=== PATIENT | male | born 1955 | race Caucasian/White ===

== ENCOUNTER 2016-06-07 18:13 | Emergency (ER) | payer BC, OTHER ==
[~2016-06-07] VITALS: Ht 172.7 cm; Wt 103.5 kg
[~2016-06-07 18:13] MED LIST: ALBU1AER9; MULTIVIT PO; [UNRECOGNIZED DRUG - OTHER] PO; chondroitin
[2016-06-07 18:21] VITALS: TEMP 36.6; Ht 172.7 cm; Wt 103.5 kg
--- NOTE | 2016-06-07 18:32 | EMERGENCY ROOM VISIT NOTE ---
History Report prepared by Robbie: Bebeto Gonzalez Under the Supervision of: Dr. Sravan Phan D.O. First contact with patient: 18:22 Chief Complaint: CHEST PAIN Stated Complaint: CHEST PAIN Nursing Triage Summary: Pt presents with mid to left sided chest pain since Mon. Pt states, "I noticed today there is a bruise where the pain started. I had pill caught in my esophagus so I don't know it that is it." No known injury. History of Present Illness The patient is a 61 year old male who presents to the Emergency Room with complaints of waxing and waning chest pain that started 2 days ago. He says that the pain is in his mid and left-side. The patient has the pain currently. He notes that movement and exertion worsens the pain. He gets short of breath when the pain is bad. The patient noticed today that there is a little bruising on the left side of his chest. He denies any radiation of the pain, abdominal pain, or leg pain. He says that he has never had chest pain like this before. The patient went to [facility] yesterday, and had no tests done. He notes that he has a hiatal hernia. He has no heart attack history and has never had a heart cath before. The patient has sleep apnea, arthritis, and mild hypertension. He occasionally drinks alcohol, but does not use any tobacco products. Source of History: patient, spouse/significant other Onset: 2 days ago Position: chest (mid and left side) Timing: waxes/wanes Modifying Factors (Worsening): exertion, movement Associated Symptoms: + SOB, No abdominal pain Note: Associated symptoms: Bruising on left side of chest. Denies radiation of pain, leg pain. Review of Systems See HPI for pertinent positives & negatives. A total of 10 systems reviewed and were otherwise negative. Past Medical & Surgical Medical Problems: (1) Asthma (2) Bronchitis (3) HTN (hypertension) Surgical Problems: (1) History of hip surgery (2) Hx of shoulder surgery Family History No pertinent family history Social History Smoking Status: Former Smoker Alcohol Use: occasionally Marital Status: Housing Status: lives with family Occupation Status: employed Current/Historical Medications Scheduled Fish Oil (Montague-3), 1-2 CAP PO DAILY Joxucoxbzzq-Iacarykpkdc-Yxq C- (Glucosamine Chondroitin), 1-2 TABS PO DAILY Losartan Potassium (Cozaar), 25 MG PO DAILY Meloxicam (Mobic), 15 MG PO DAILY Modafinil (Provigil), 200 MG PO DAILY Multivitamin (Multivitamin), 1 TAB PO DAILY Scheduled PRN Albuterol (Ventolin Hfa), 2 PUFFS INH Q4H PRN for SOB/Wheezing Diclofenac Sodium (Topical) (Pennsaid), 2 SPRAYS TOP BID PRN for Joint Pain Tramadol Hcl (Tramadol Hcl Er), 100 MG PO UD PRN for Pain Allergies Coded Allergies: No Known Allergies (Unverified , 07/15/10) Physical Exam Vital Signs Date Time Temp Pulse Resp B/P Pulse Ox O2 Delivery O2 Flow Rate FiO2 06/07/16 21:00 70 18 153/85 93 06/07/16 20:17 68 20 135/72 95 Room Air 06/07/16 19:37 70 18 143/76 94 Room Air 06/07/16 18:40 97 Room Air 06/07/16 18:37 73 06/07/16 18:21 36.6 76 18 154/90 96 Room Air Physical Exam GENERAL: Patient is awake, alert, and in no acute distress. Patient is resting comfortably and showing no signs of anxiety EYES: The conjunctivae are clear. The pupils are round and reactive. EARS, NOSE, MOUTH AND THROAT: The nose is without any evidence of any deformity. Mucous membranes are moist tongue is midline NECK: The neck is nontender and supple. RESPIRATORY: Normal respiratory effort is noted there is no evidence of wheezing rhonchi or rales CARDIOVASCULAR: Regular rate and rhythm noted there no murmurs rubs or gallops normal S1 normal S2 GASTROINTESTINAL: The abdomen is soft. Bowel sounds are present in all quadrants. Abdomen is nontender MUSCULOSKELETAL/EXTREMITIES: There is no evidence of gross deformity full range of motion is noted in the hips and shoulders. There was ecchymosis and palpable tenderness over left chest wall. SKIN: There is no obvious evidence of any rash. There are no petechiae, pallor or cyanosis noted. NEUROLOGIC: Patient is awake alert and oriented x3. Medical Decision & Procedures ER Provider Diagnostic Interpretation: Radiology results as stated below per my review and radiologist interpretation: CHEST ONE VIEW PORTABLE CLINICAL HISTORY: CHEST PAIN dyspnea COMPARISON STUDY: 12/28/2009 FINDINGS: The bones soft tissues and hemidiaphragms are normal. The cardiomediastinal silhouette is normal. The lungs are clear. The pulmonary vasculature is normal. IMPRESSION: Negative chest. Electronically signed by: Davin Gar M.D. 06/07/2016 7:07 PM Dictated Date/Time: 06/07/2016 7:06 PM CHEST CTA for PULMONARY ARTERIES CT DOSE: 517.32 mGy.cm HISTORY: Chest pain dyspnea TECHNIQUE: Multiaxial CT images of the chest were performed following the intravenous administration of contrast to evaluate the pulmonary arteries. Maximal intensity projection images were also obtained. COMPARISON STUDY: None. FINDINGS: There is a normal caliber thoracic aorta with no evidence for dissection. There is no evidence for pulmonary embolus. No pleural effusions. No pneumothorax. The liver and spleen are unremarkable. No mediastinal or hilar lymphadenopathy. The central airways are patent. The lungs are clear. Minimal scattered atelectatic change. IMPRESSION: No evidence for pulmonary embolus. Minimal scattered atelectatic change. Electronically signed by: Davin Gar M.D. 06/07/2016 8:08 PM Dictated Date/Time: 06/07/2016 8:06 PM Laboratory Results 06/07/16 18:40 Red Blood Count 4.88, Mean Corpuscular Volume 87.7, Mean Corpuscular Hemoglobin 30.3, Mean Corpuscular Hemoglobin Concent 34.6, Mean Platelet Volume 9.8, Neutrophils (%) (Auto) 57.8, Lymphocytes (%) (Auto) 29.5, Monocytes (%) (Auto) 8.0, Eosinophils (%) (Auto) 4.3, Basophils (%) (Auto) 0.3, Neutrophils # (Auto) 3.91, Lymphocytes # (Auto) 2.00, Monocytes # (Auto) 0.54, Eosinophils # (Auto) 0.29, Basophils # (Auto) 0.02 06/07/16 18:40 Test 06/07/16 18:40 White Blood Count 6.77 K/uL (4.8-10.8) Red Blood Count 4.88 M/uL (4.7-6.1) Hemoglobin 14.8 g/dL (14.0-18.0) Hematocrit 42.8 % (42-52) Mean Corpuscular Volume 87.7 fL (80-100) Mean Corpuscular Hemoglobin 30.3 pg (25-34) Mean Corpuscular Hemoglobin Concent 34.6 g/dl (32-36) Platelet Count 168 K/uL (130-400) Mean Platelet Volume 9.8 fL (7.4-10.4) Neutrophils (%) (Auto) 57.8 % Lymphocytes (%) (Auto) 29.5 % Monocytes (%) (Auto) 8.0 % Eosinophils (%) (Auto) 4.3 % Basophils (%) (Auto) 0.3 % Neutrophils # (Auto) 3.91 K/uL (1.4-6.5) Lymphocytes # (Auto) 2.00 K/uL (1.2-3.4) Monocytes # (Auto) 0.54 K/uL (0.11-0.59) Eosinophils # (Auto) 0.29 K/uL (0-0.5) Basophils # (Auto) 0.02 K/uL (0-0.2) RDW Standard Deviation 39.7 fL (36.4-46.3) RDW Coefficient of Variation 12.4 % (11.5-14.5) Immature Granulocyte % (Auto) 0.1 % Immature Granulocyte # (Auto) 0.01 K/uL (0.00-0.02) Prothrombin Time 10.8 SECONDS (9.0-12.0) Prothromb Time International Ratio 1.0 (0.9-1.1) Activated Partial Thromboplast Time 28.2 SECONDS (21.0-31.0) Partial Thromboplastin Ratio 1.1 D-Dimer 700 ug/L FEU (0-500) Anion Gap 9.0 mmol/L (3-11) Est Creatinine Clear Calc Drug Dose 92.5 ml/min Estimated GFR () 95.5 Estimated GFR (Non- 82.4 BUN/Creatinine Ratio 21.6 (10-20) Calcium Level 9.1 mg/dl (8.5-10.1) Total Bilirubin 0.7 mg/dl (0.2-1) Direct Bilirubin 0.2 mg/dl (0-0.2) Aspartate Amino Transf (AST/SGOT) 40 U/L (15-37) Alanine Aminotransferase (ALT/SGPT) 49 U/L (12-78) Alkaline Phosphatase 108 U/L (45-117) Total Creatine Kinase 375 U/L (39-308) Creatine Kinase MB 4.1 ng/ml (0.5-3.6) Creatine Kinase MB Ratio 1.1 (0-3.0) Troponin I < 0.015 ng/ml (0-0.045) Total Protein 7.2 gm/dl (6.4-8.2) Albumin 4.1 gm/dl (3.4-5.0) Lipase 107 U/L (73-393) Laboratory results per my review. ECG Indication: chest pain Rate (beats per minute): 73 Rhythm: normal sinus Findings: no ectopy, other (no acute ST segment abnormalities, incomplete RBBB pattern noted) Change: no significant change (from Jul 15 2010) ED Course 1822: The patient was evaluated in room B11B. A complete history and physical examination were performed. 1941: I reevaluated and updated the patient. 2036: Upon reevaluation, the patient is resting comfortably. I discussed the results and treatment plan with him. He verbalized agreement of the treatment plan. He was discharged home. Medical Decision Prior records/ancillary studies reviewed. Triage Nursing notes reviewed. Additional history obtained from family. Differential diagnosis: Etiologies such as cardiac ischemia, aortic dissection, pulmonary embolism, pneumonia, pneumothorax, musculoskeletal, infections, pericarditis, myocarditis , esophageal rupture, gastrointestinal, as well as others were entertained. The patient is a 61-year-old male who presented to emergency department for ongoing left-sided chest pain. The patient noticed left-sided chest pain which is been ongoing for greater than 6 hours. The patient also had ecchymosis and tenderness over his left anterior chest wall. The patient's EKG did not show any acute changes from previous. His d-dimer is elevated to a CT the chest was ordered. I discussed patient's laboratory and radiographic studies with him. He was reevaluated multiple times. He was encouraged to rest and avoid any strenuous activity. I also discussed the limitations of the emergency department workup for chest pain with him. He was also encouraged to follow-up with his family doctor for further evaluation and for possible further studies such as echocardiogram. He was also encouraged to return to the emergency department immediately if symptoms change worsen or the need arises. Impression Primary Impression: Left sided chest pain Additional Impression: Musculoskeletal chest pain Scribe Attestation The scribe's documentation has been prepared under my direction and personally reviewed by me in its entirety. I confirm that the note above accurately reflects all work, treatment, procedures, and medical decision making performed by me. Departure Information Dispostion Home / Self-Care Referrals Venkata Joiner D.O. (PCP) Forms HOME CARE DOCUMENTATION FORM, IMPORTANT VISIT INFORMATION Patient Instructions ED Chest Pain Atypical Unkn Cause, My [facility] Additional Instructions Call your family in the morning to schedule a follow-up appointment. Rest and avoid any strenuous activity. Discussed the possibility with your family the may require further studies such as a stress test to further evaluate the cause your pain. Return to the emergency department immediately if symptoms change worsen or the need arises. Continue using Motrin and Tylenol as directed for pain. Problem Qualifiers
[2016-06-07 18:40] VITALS: O2SAT 97
[2016-06-07 18:50] LABS: BASO % 0.3 %; BASO ABS # 0.02 K/uL (0-0.2); COMPLETE YES; EOS % 4.3 %; HEMATOCRIT 42.8 % (42-52); IG% 0.1 %; LYMPH % 29.5 %; MEAN CELL VOLUME 87.7 fL (80-100); MEAN CORPUSCULAR HEMOGLOBIN 30.3 pg (25-34); MEAN CORPUSCULAR HGB CONC 34.6 g/dl (32-36); MEAN PLATELET VOLUME 9.8 fL (7.4-10.4); NEUT % 57.8 %; PLATELET COUNT 168 K/uL (130-400); RED BLOOD COUNT 4.88 M/uL (4.7-6.1); WHITE BLOOD COUNT 6.77 K/uL (4.8-10.8)
[2016-06-07 19:00] LABS: PARTIAL THROMBOPLASTIN RATIO 1.1; PROTHROMBIN TIME (PATIENT) 10.8 SECONDS (9.0-12.0)
[2016-06-07 19:06] LABS: ALT/SGPT 49 U/L (12-78); AST/SGOT 40 U/L (15-37); BLOOD UREA NITROGEN 21 mg/dl (7-18); BUN/CREATININE RATIO 21.6 (10-20); CALCIUM 9.1 mg/dl (8.5-10.1); CARBON DIOXIDE 27 mmol/L (21-32); CHLORIDE 106 mmol/L (98-107); CREATININE 0.99 mg/dl (0.60-1.40); GLUCOSE 78 mg/dl (70-99); POTASSIUM 3.8 mmol/L (3.5-5.1); SODIUM 142 mmol/L (136-145)
--- NOTE | 2016-06-07 19:09 | DIAGNOSTIC IMAGING REPORT ---
CHEST ONE VIEW PORTABLE CLINICAL HISTORY: CHEST PAIN dyspnea COMPARISON STUDY: 12/28/2009 FINDINGS: The bones soft tissues and hemidiaphragms are normal. The cardiomediastinal silhouette is normal. The lungs are clear. The pulmonary vasculature is normal. IMPRESSION: Negative chest. Electronically signed by: Davin Gar M.D. 06/07/2016 7:07 PM Dictated Date/Time: 06/07/2016 7:06 PM
[2016-06-07 19:12] LABS: ALKALINE PHOSPHATASE 108 U/L (45-117); CKMB/CK RATIO 1.1 (0-3.0)
[2016-06-07] MEDS ORDERED: MODA1TAB PO (19:21)
[2016-06-07] MEDS ORDERED: GLUCTAB7 PO (19:21)
[2016-06-07] MEDS ORDERED: DICL1SOL6 TOP (19:21)
[2016-06-07] MEDS ORDERED: MULT-506 PO (19:21)
[2016-06-07] MEDS ORDERED: LOSA25TA18 PO (19:21)
[2016-06-07] MEDS ORDERED: TRAM1TAB96 PO (19:21)
[2016-06-07] MEDS ORDERED: MELO15TA4 PO (19:21)
[2016-06-07] MEDS ORDERED: OMEG10007 PO (19:21)
[2016-06-07] MEDS ORDERED: PRVHFAIN INH (19:21)
[2016-06-07] MEDS ORDERED: OPTIRAY 320 IV PRN (20:00)
--- NOTE | 2016-06-07 20:10 | DIAGNOSTIC IMAGING REPORT ---
CHEST CTA for PULMONARY ARTERIES CT DOSE: 517.32 mGy.cm HISTORY: Chest pain dyspnea TECHNIQUE: Multiaxial CT images of the chest were performed following the intravenous administration of contrast to evaluate the pulmonary arteries. Maximal intensity projection images were also obtained. COMPARISON STUDY: None. FINDINGS: There is a normal caliber thoracic aorta with no evidence for dissection. There is no evidence for pulmonary embolus. No pleural effusions. No pneumothorax. The liver and spleen are unremarkable. No mediastinal or hilar lymphadenopathy. The central airways are patent. The lungs are clear. Minimal scattered atelectatic change. IMPRESSION: No evidence for pulmonary embolus. Minimal scattered atelectatic change. Electronically signed by: Davin Gar M.D. 06/07/2016 8:08 PM Dictated Date/Time: 06/07/2016 8:06 PM
[2016-06-07 21:00] VITALS: BP 153/85; PULSE 70; O2SAT 93
== END 2016-06-07 21:01 | disposition home or self-care (01) ==
LOC: C.EDB 18:14
DX: R07.89 Other chest pain (principal); J45.909 Unspecified asthma, uncomplicated; I10 Essential (primary) hypertension; Z98.890 Other specified postprocedural states; Z87.891 Personal history of nicotine dependence; Z79.899 Other long term (current) drug therapy

== ENCOUNTER 2022-03-09 18:38 | Inpatient (IN) ==
[2022-03-09] MEDS ORDERED: ACETAMINOPHEN 500 MG TAB ONE (20:45)
[2022-03-09 21:22] LABS: Troponin I High Sensitivity 19.5 pg/ml (0-20)
[2022-03-09 21:28] LABS: Albumin Globulin Ratio 1.5 (0.9-2); Albumin Level 4.1 gm/dl (3.4-5.0); BUN Creatinine Ratio 23.3 (10-20); Bilirubin,Total 0.6 mg/dl (0.2-1.0); Calcium 9.3 mg/dl (8.5-10.1); Creatinine Clr Calc Pharmacy 76.9 ml/min; Est GFR (African American) 73.1 ml/min; Est GFR (Non-African American) 63.1 ml/min; Globulin 2.7 gm/dl (2.5-4.0); Potassium 4.2 mmol/L (3.5-5.1); Total Protein 6.8 gm/dl (6.0-8.3)
[2022-03-09] MEDS ORDERED: ACETAMINOPHEN 1,000 MG/100 ML VIAL IV STA (21:29)
[2022-03-09] MEDS ORDERED: SODIUM CHLORIDE 0.9% 1000ML 1,000 ML IV ONE (21:30)
[2022-03-09 21:35] LABS: Influenza A virus by PCR Negative (Neg); Influenza B virus by PCR Negative (Neg); RSV by PCR Negative (Neg); SARS CoV2 RNA(COVID-19) Ceph NEGATIVE (Negative)
[2022-03-09] MEDS ORDERED: IBUPROFEN 800 MG TAB PO STA (21:52)
[2022-03-09] MEDS ORDERED: ALBUT/IPRATROP 3MG/0.5MG NEB 3 ML VIAL NEB STA (21:52)
[2022-03-09] MEDS ORDERED: methylPREDNISolone 125 MG/2 ML VIAL IV STA (21:52)
[2022-03-09 22:25] LABS: Appearance Urine Clear (Clear); Bilirubin Urine Negative (Negative); Blood Urine Negative (Negative); Color Urine Yellow; Glucose Urine UA Negative (Negative); Ketones Urine Negative (Negative); Leukocyte Esterase Urine Negative (Negative); Nitrite Urine Negative (Negative); Protein Urine Negative (Negative); Specific Gravity Urine 1.021 (1.000-1.030); Urobilinogen Urine Negative (Negative)
[2022-03-09 22:38] LABS: Basophils # (auto) 0.03 K/uL (0-0.2); Basophils % (auto) 0.2 %; Eosinophils # (auto) 0.01 K/uL (0-0.50); Eosinophils % (auto) 0.1 %; Hematocrit (blood only) 44.2 % (40.1-51.0); Hemoglobin 15.4 g/dl (14.0-18.0); Immature Granulocytes # (auto) 0.16 K/uL (0.00-0.02); Immature Granulocytes % (auto) 0.8 %; Lymphocytes # (auto) 0.45 K/uL (1.2-3.4); Lymphocytes % (auto) 2.4 %; Mean Corpuscular Hemoglobin 30.6 pg (25.0-34.0); Mean Corpuscular Hgb Conc 34.8 g/dL (32.0-36.0); Mean Corpuscular Volume 87.9 fL (80.0-100.0); Mean Platelet Volume 9.5 fL (9.4-12.4); Monocytes # (auto) 1.44 K/uL (0.24-0.82); Monocytes % (auto) 7.5 %; Neutrophils # (auto) 17.03 K/uL (1.4-6.5); Platelet Count 185 K/uL (130-400); RDW Standard Deviation 38.6 fL (36.4-46.3); Red Blood Count 5.03 M/uL (4.63-6.08); White Blood Count 19.12 K/ul (4.8-10.8)
[2022-03-09] MEDS ORDERED: PIPERACILLIN/TAZOBACTAM 4.5 GM/120 ML BAG IV ONE (23:30)
--- NOTE | 2022-03-09 23:55 | Emergency Department Note ---
ED Visit Note I was consulted by the Advanced Practice Provider. I saw the patient personally and performed a substantive portion of the visit. This includes aspects of the HPI, MDM, diagnostic interpretations, and disposition/plan. Patient presents with flulike symptoms, fever and cough. He does have a high white count, he presents tachycardic as well as febrile. Antibiotics were given. Hospitalization is warranted. .
[2022-03-10] MEDS ORDERED: OPTIRAY 320 500ml IV ONE (00:09)
--- NOTE | 2022-03-10 00:15 | Emergency Department Note ---
History of Present Illness General Chief complaint: Hypertension Stated complaint: HIGH BP, FEVER, NAUSEA, DIZZY Time Seen by Provider: 03/09/22 21:25 History of Present Illness Maximum Pain Intensity: 4 This 66-year-old gentleman with hypertension and asthma presents to the ER complaining of fevers, cough, shortness of breath and generalized illness for the past few days steadily getting worse. Patient denies abdominal pain, neck stiffness, vomiting, diarrhea. His main complaint is the coughing and the breathing. Home Medications Medication Instructions Recorded Confirmed Type acetaminophen 500 mg tablet 1,000 mg PO AMHS PRN Pain 03/09/22 03/09/22 History albuterol sulfate 90 mcg/actuation 2 puff inhalation QID PRN 03/09/22 03/09/22 History aerosol inhaler Shortness Of Breath Or Wheezing amlodipine 2.5 mg tablet 2.5 mg PO DAILY 03/09/22 03/09/22 History cholecalciferol (vitamin D3) 25 12.5 mcg PO DAILY 03/09/22 03/09/22 History mcg (1,000 unit) tablet citalopram 20 mg tablet 20 mg PO DAILY 03/09/22 03/09/22 History glucosamine sulf dipot 2 cap PO QAM 03/09/22 03/09/22 History chlr,msm,chond 550 mg-C 30 mg-asif 1 mg capsule (Glucosamine Chondroitin) losartan 100 mg tablet 100 mg PO QAM 03/09/22 03/09/22 History meloxicam 15 mg tablet 15 mg PO DAILY 03/09/22 03/09/22 History multivitamin 1 tab PO DAILY 03/09/22 03/09/22 History vitamin E 200 unit tablet 0 unit PO DAILY 03/09/22 03/09/22 History Allergies Allergy/AdvReac Type Severity Reaction Status Date / Time No Known Allergies Unverified 03/09/22 23:18 Past Med/Surg History Social History Smoking Status: Never smoker Hx Alcohol Use: No Hx Substance Use: No Preferred Language: Romansh Communication Ability: Effective [facility] Director Required: No Beliefs That Will Affect Care: Christian Christian Beliefs: samaritan Current Living Situation: Spouse and Family Other Information That Helps Us Care for You: No Feels Safe at Home: Yes Safety Concerns: Feels Safe At This Time Assistive Devices: BiPap and Glasses Review of Systems A total of 10 systems reviewed and were otherwise negative Physical Exam Vital Signs Vital Signs - 24 hr 03/09/22 19:00 03/09/22 22:00 03/10/22 00:00 Temperature 38.6 C H Temperature Source Temporal Artery Scan Pulse Rate 119 H Pulse Rate [Right Radial] 103 H 88 Respiratory Rate 20 20 18 Respiratory Effort / Characteristics Non-Labored Spontaneous Non-Labored Spontaneous Non-Labored Spontaneous Respiratory Depth Normal Normal Normal Respiratory Pattern Regular Blood Pressure 164/88 H Blood Pressure [Right Arm] 132/66 Blood Pressure Mean 113 Blood Pressure Mean [Right Arm] 88 Blood Pressure Position [Right Arm] Lying Pulse Oximetry 97 92 98 Oxygen Delivery Method Room Air Room Air Room Air Sepsis Recent Fever Within 48 Hours No Sepsis New/Unexplained Change in Mental Status N/A Sepsis Action Taken by Nursing No Action Required 03/10/22 02:00 Temperature Temperature Source Pulse Rate Pulse Rate [Right Radial] 80 Respiratory Rate 16 Respiratory Effort / Characteristics Non-Labored Spontaneous Respiratory Depth Normal Respiratory Pattern Blood Pressure Blood Pressure [Right Arm] 121/73 Blood Pressure Mean Blood Pressure Mean [Right Arm] 89 Blood Pressure Position [Right Arm] Pulse Oximetry 99 Oxygen Delivery Method Room Air Sepsis Recent Fever Within 48 Hours Sepsis New/Unexplained Change in Mental Status Sepsis Action Taken by Nursing PHYSICAL EXAM: Vital Signs: Reviewed Nurse's notes. Oxygen saturation was 92% on room air. GENERAL: Pleasant gentleman mildly ill-appearing, Alert, oriented and coherent. The patient is able to speak in complete sentences. NECK: Supple, non-tender. CHEST: Symmetrical expansion. no retractions no accessory muscle use. HEART: Regular rate and normal heart sounds, LUNGS: Breath sounds equal but significantly diminished in intensity on both sides. Bilateral wheezes heard but no rales or pleuritic rub. SKIN: The skin was without rashes, erythema, edema, or bruising. There is no tenting of the skin. Capillary reflex less than 2 seconds. HEAD: Normocephalic atraumatic. EARS: External auditory canals clear, tympanic membranes pearly coronado without erythema or effusion bilaterally. EYES: Pupils equal round and reactive to light and accommodation. Conjunctivae without injection, sclerae without icterus. Extraocular movements intact. NOSE: Patent, turbinates without inflammation or discharge. MOUTH: Mucous membranes moist. Pharynx without erythema or exudate. Uvula midline. Airway patent. Tongue does not deviate. ABDOMEN: Positive bowel sounds x 4. Normal tympanic percussion. Soft, nontender, without masses or organomegaly. Serrato sign negative. No guarding or rebound tenderness. MUSCULOSKELETAL: No muscle atrophy, erythema, noted. NEURO: Patient was alert and oriented to person place and time. Normal sensation to light and sharp touch. No focal neurological deficits. Course Administered Medications Discontinued Medications Acetaminophen (Acetaminophen 500 Mg Tab) Confirm Administered Dose 1,000 mg .ROUTE .STK-MED ONE Stop: 03/09/22 20:46 Last Admin: 03/09/22 20:46 Dose: 1,000 mg Documented By: LUIS M Albuterol (Albut/Ipratrop 3mg/0.5mg Neb 3 Ml Vial) 3 ml NEB NOW STA; Protocol Stop: 03/09/22 21:53 Last Admin: 03/09/22 22:00 Dose: 3 ml Documented By: LISETH Acetaminophen (Ofirmev) 1,000 mg in 100 mls @ 400 mls/hr IV NOW STA Stop: 03/09/22 21:43 Last Admin: 03/09/22 22:00 Dose: Not Given Documented By: LISETH Sodium Chloride (Nss 1000ml) 1,000 mls @ 999 mls/hr IV .Q1H1M ONE Stop: 03/09/22 22:30 Last Infusion: 03/09/22 23:16 Dose: 0 mls/hr Documented By: Admin: 03/09/22 22:01 Dose: 999 mls/hr Documented By: LISETH Piperacillin Sod/Tazobactam Sod (Zosyn) 4.5 gm in 120 mls @ 240 mls/hr IV NOW ONE Stop: 03/09/22 23:59 Last Infusion: 03/10/22 00:13 Dose: 0 mls/hr Documented By: Admin: 03/09/22 23:34 Dose: 240 mls/hr Documented By: LONG Ibuprofen (Ibuprofen 800 Mg Tab) 800 mg PO NOW STA Stop: 03/09/22 21:53 Last Admin: 03/09/22 22:01 Dose: 800 mg Documented By: LISETH Ioversol (Optiray 320 500ml) 125 ml IV ONCE ONE Stop: 03/10/22 00:10 Last Admin: 03/10/22 00:10 Dose: 109 ml Documented By: LM Methylprednisolone (Methylprednisolone 125 Mg/2 Ml Vial) 125 mg IV NOW STA Stop: 03/09/22 21:53 Last Admin: 03/09/22 22:00 Dose: 125 mg Documented By: LISETH Medical Decision Making Medical Records Attestation: I reviewed the patient's medical records. Home Medications Current Medication List: was personally reviewed by me Laboratory Data Attestation: I reviewed the patient's lab results. 03/09/22 22:14 03/09/22 20:42 Lab Results 03/09/22 03/09/22 03/09/22 Range/Units 20:42 20:42 20:42 WBC Cancelled RBC Cancelled Hgb Cancelled Hct Cancelled MCV Cancelled MCH Cancelled MCHC Cancelled RDW Std Deviation Cancelled RDW Coeff of Major Cancelled Plt Count Cancelled MPV Cancelled Immature Gran % (Auto) Cancelled Neut % (Auto) Cancelled Lymph % (Auto) Cancelled [place] % (Auto) Cancelled Eos % (Auto) Cancelled Baso % (Auto) Cancelled Neut # (Auto) Cancelled Lymph # (Auto) Cancelled [place] # (Auto) Cancelled Eos # (Auto) Cancelled Baso # (Auto) Cancelled Immature Gran # (Auto) Cancelled Absolute Nucleated RBC Cancelled Nucleated RBC % (auto) Cancelled Neutrophils % (Manual) Cancelled Band Neutrophils % Cancelled Lymphocytes % (Manual) Cancelled Prolymphocyte % Cancelled Reactive Lymphs % (Man) Cancelled Monocytes % (Manual) Cancelled Eosinophils % (Manual) Cancelled Basophils % (Manual) Cancelled Metamyelocytes % (Man) Cancelled Myelocytes % (Man) Cancelled Promyelocytes % (Man) Cancelled Blast Cells % (Manual) Cancelled Plasma Cell % (Manual) Cancelled Other Cells % Cancelled Nucleated RBC % Cancelled Neutrophils # (Manual) Cancelled Band Neutrophils # Cancelled Total Absolute Neuts Cancelled Lymphocytes # (Manual) Cancelled Prolymphocyte # Cancelled Reactive Lymphs # Cancelled Total Abs Lymphocytes Cancelled Monocytes # (Manual) Cancelled Eosinophils # (Manual) Cancelled Basophils # (Manual) Cancelled Metamyelocytes # (Man) Cancelled Myelocytes # (Manual) Cancelled Promyelocytes # (Man) Cancelled Blast Cells # (Man) Cancelled Plasma Cell # (Manual) Cancelled Other Cells # Cancelled Nucleated RBCs # (Man) Cancelled Hypersegmented Neuts Cancelled Hyposegmented Neuts Cancelled Hypogranular Neuts Cancelled Large Granular Lymphs Cancelled # Lrg Granular Lymphs Cancelled Hairy Cells Cancelled Smudge Cells Cancelled Toxic Granulation Cancelled Toxic Vacuolation Cancelled Dohle Bodies Cancelled Rony Rods Cancelled Platelet Estimate Cancelled Hypogranular Platelets Cancelled Clumped Platelets Cancelled Giant Platelets Cancelled Platelet Satelliting Cancelled RBC Morphology Cancelled Polychromasia Cancelled Hypochromasia Cancelled Poikilocytosis Cancelled Basophilic Stippling Cancelled Anisocytosis Cancelled Microcytosis Cancelled Macrocytosis Cancelled Spherocytes Cancelled Pappenheimer Bodies Cancelled Sickle Cells Cancelled Target Cells Cancelled Tear Drop Cells Cancelled Ovalocytes Cancelled Stomatocytes Cancelled [place] Bodies Cancelled Echinocytes Cancelled Acanthocytes (Spur) Cancelled Rouleaux Cancelled RBC Agglutinates Cancelled Schistocytes Cancelled Sezary Cell Cancelled Sodium 136 (136-145) mmol/L Potassium 4.2 (3.5-5.1) mmol/L Chloride 105 (98-107) mmol/L Carbon Dioxide 21 (21-32) mmol/L Anion Gap 10 (3-11) BUN 28 H (6-23) mg/dl Creatinine 1.20 (0.6-1.4) mg/dl Est Cr Clr Drug Dosing 76.9 ml/min Est GFR ( Amer) 73.1 ml/min Est GFR (Non-Af Amer) 63.1 ml/min BUN/Creatinine Ratio 23.3 H (10-20) Glucose 108 H (70-99(Fasting)) mg/dl Lactate (0.4-2.0) mmol/L Calcium 9.3 (8.5-10.1) mg/dl Total Bilirubin 0.6 (0.2-1.0) mg/dl AST 29 (13-39) U/L ALT 40 (7-52) U/L Alkaline Phosphatase 61 (34-104) U/L Troponin I High Sens 19.5 (0-20) pg/ml Total Protein 6.8 (6.0-8.3) gm/dl Albumin 4.1 (3.4-5.0) gm/dl Globulin 2.7 (2.5-4.0) gm/dl Albumin/Globulin Ratio 1.5 (0.9-2) Procalcitonin (0-0.5) ng/ml Urine Color Urine Appearance (Clear) Urine pH (4.5-7.5) Ur Specific Moody (1.000-1.030) Urine Protein (Negative) Urine Glucose (UA) (Negative) Urine Ketones (Negative) Urine Blood (Negative) Urine Nitrite (Negative) Urine Bilirubin (Negative) Urine Urobilinogen (Negative) Ur Leukocyte Esterase (Negative) SARS-CoV-2 (PCR) NEGATIVE (Negative) Influenza Type A (PCR) Negative (Neg) Influenza Type B (PCR) Negative (Neg) RSV (RT-PCR) Negative (Neg) Blood Parasites ID Cancelled 03/09/22 03/09/22 03/09/22 Range/Units 20:42 22:10 22:14 WBC 19.12 H RBC 5.03 Hgb 15.4 Hct 44.2 MCV 87.9 MCH 30.6 MCHC 34.8 RDW Std Deviation 38.6 RDW Coeff of Major 12.0 Plt Count 185 MPV 9.5 Immature Gran % (Auto) 0.8 Neut % (Auto) 89.0 Lymph % (Auto) 2.4 [place] % (Auto) 7.5 Eos % (Auto) 0.1 Baso % (Auto) 0.2 Neut # (Auto) 17.03 H Lymph # (Auto) 0.45 L [place] # (Auto) 1.44 H Eos # (Auto) 0.01 Baso # (Auto) 0.03 Immature Gran # (Auto) 0.16 H Absolute Nucleated RBC Nucleated RBC % (auto) Neutrophils % (Manual) Band Neutrophils % Lymphocytes % (Manual) Prolymphocyte % Reactive Lymphs % (Man) Monocytes % (Manual) Eosinophils % (Manual) Basophils % (Manual) Metamyelocytes % (Man) Myelocytes % (Man) Promyelocytes % (Man) Blast Cells % (Manual) Plasma Cell % (Manual) Other Cells % Nucleated RBC % Neutrophils # (Manual) Band Neutrophils # Total Absolute Neuts Lymphocytes # (Manual) Prolymphocyte # Reactive Lymphs # Total Abs Lymphocytes Monocytes # (Manual) Eosinophils # (Manual) Basophils # (Manual) Metamyelocytes # (Man) Myelocytes # (Manual) Promyelocytes # (Man) Blast Cells # (Man) Plasma Cell # (Manual) Other Cells # Nucleated RBCs # (Man) Hypersegmented Neuts Hyposegmented Neuts Hypogranular Neuts Large Granular Lymphs # Lrg Granular Lymphs Hairy Cells Smudge Cells Toxic Granulation Toxic Vacuolation Dohle Bodies Rony Rods Platelet Estimate Hypogranular Platelets Clumped Platelets Giant Platelets Platelet Satelliting RBC Morphology Polychromasia Hypochromasia Poikilocytosis Basophilic Stippling Anisocytosis Microcytosis Macrocytosis Spherocytes Pappenheimer Bodies Sickle Cells Target Cells Tear Drop Cells Ovalocytes Stomatocytes [place] Bodies Echinocytes Acanthocytes (Spur) Rouleaux RBC Agglutinates Schistocytes Sezary Cell Sodium (136-145) mmol/L Potassium (3.5-5.1) mmol/L Chloride (98-107) mmol/L Carbon Dioxide (21-32) mmol/L Anion Gap (3-11) BUN (6-23) mg/dl Creatinine (0.6-1.4) mg/dl Est Cr Clr Drug Dosing ml/min Est GFR ( Amer) ml/min Est GFR (Non-Af Amer) ml/min BUN/Creatinine Ratio (10-20) Glucose (70-99(Fasting)) mg/dl Lactate (0.4-2.0) mmol/L Calcium (8.5-10.1) mg/dl Total Bilirubin (0.2-1.0) mg/dl AST (13-39) U/L ALT (7-52) U/L Alkaline Phosphatase (34-104) U/L Troponin I High Sens (0-20) pg/ml Total Protein (6.0-8.3) gm/dl Albumin (3.4-5.0) gm/dl Globulin (2.5-4.0) gm/dl Albumin/Globulin Ratio (0.9-2) Procalcitonin 0.21 (0-0.5) ng/ml Urine Color Yellow Urine Appearance Clear (Clear) Urine pH 6.0 (4.5-7.5) Ur Specific Moody 1.021 (1.000-1.030) Urine Protein Negative (Negative) Urine Glucose (UA) Negative (Negative) Urine Ketones Negative (Negative) Urine Blood Negative (Negative) Urine Nitrite Negative (Negative) Urine Bilirubin Negative (Negative) Urine Urobilinogen Negative (Negative) Ur Leukocyte Esterase Negative (Negative) SARS-CoV-2 (PCR) (Negative) Influenza Type A (PCR) (Neg) Influenza Type B (PCR) (Neg) RSV (RT-PCR) (Neg) Blood Parasites ID 03/09/22 Range/Units 22:14 WBC RBC Hgb Hct MCV MCH MCHC RDW Std Deviation RDW Coeff of Major Plt Count MPV Immature Gran % (Auto) Neut % (Auto) Lymph % (Auto) [place] % (Auto) Eos % (Auto) Baso % (Auto) Neut # (Auto) Lymph # (Auto) [place] # (Auto) Eos # (Auto) Baso # (Auto) Immature Gran # (Auto) Absolute Nucleated RBC Nucleated RBC % (auto) Neutrophils % (Manual) Band Neutrophils % Lymphocytes % (Manual) Prolymphocyte % Reactive Lymphs % (Man) Monocytes % (Manual) Eosinophils % (Manual) Basophils % (Manual) Metamyelocytes % (Man) Myelocytes % (Man) Promyelocytes % (Man) Blast Cells % (Manual) Plasma Cell % (Manual) Other Cells % Nucleated RBC % Neutrophils # (Manual) Band Neutrophils # Total Absolute Neuts Lymphocytes # (Manual) Prolymphocyte # Reactive Lymphs # Total Abs Lymphocytes Monocytes # (Manual) Eosinophils # (Manual) Basophils # (Manual) Metamyelocytes # (Man) Myelocytes # (Manual) Promyelocytes # (Man) Blast Cells # (Man) Plasma Cell # (Manual) Other Cells # Nucleated RBCs # (Man) Hypersegmented Neuts Hyposegmented Neuts Hypogranular Neuts Large Granular Lymphs # Lrg Granular Lymphs Hairy Cells Smudge Cells Toxic Granulation Toxic Vacuolation Dohle Bodies Rony Rods Platelet Estimate Hypogranular Platelets Clumped Platelets Giant Platelets Platelet Satelliting RBC Morphology Polychromasia Hypochromasia Poikilocytosis Basophilic Stippling Anisocytosis Microcytosis Macrocytosis Spherocytes Pappenheimer Bodies Sickle Cells Target Cells Tear Drop Cells Ovalocytes Stomatocytes [place] Bodies Echinocytes Acanthocytes (Spur) Rouleaux RBC Agglutinates Schistocytes Sezary Cell Sodium (136-145) mmol/L Potassium (3.5-5.1) mmol/L Chloride (98-107) mmol/L Carbon Dioxide (21-32) mmol/L Anion Gap (3-11) BUN (6-23) mg/dl Creatinine (0.6-1.4) mg/dl Est Cr Clr Drug Dosing ml/min Est GFR ( Amer) ml/min Est GFR (Non-Af Amer) ml/min BUN/Creatinine Ratio (10-20) Glucose (70-99(Fasting)) mg/dl Lactate 1.9 (0.4-2.0) mmol/L Calcium (8.5-10.1) mg/dl Total Bilirubin (0.2-1.0) mg/dl AST (13-39) U/L ALT (7-52) U/L Alkaline Phosphatase (34-104) U/L Troponin I High Sens (0-20) pg/ml Total Protein (6.0-8.3) gm/dl Albumin (3.4-5.0) gm/dl Globulin (2.5-4.0) gm/dl Albumin/Globulin Ratio (0.9-2) Procalcitonin (0-0.5) ng/ml Urine Color Urine Appearance (Clear) Urine pH (4.5-7.5) Ur Specific Moody (1.000-1.030) Urine Protein (Negative) Urine Glucose (UA) (Negative) Urine Ketones (Negative) Urine Blood (Negative) Urine Nitrite (Negative) Urine Bilirubin (Negative) Urine Urobilinogen (Negative) Ur Leukocyte Esterase (Negative) SARS-CoV-2 (PCR) (Negative) Influenza Type A (PCR) (Neg) Influenza Type B (PCR) (Neg) RSV (RT-PCR) (Neg) Blood Parasites ID Imaging Data Attestation: I personally reviewed and interpreted this imaging study as follows: MDM Narrative Prior records/ancillary studies reviewed. Triage Nursing notes reviewed. Additional history obtained from nursing. The patient's history was concerning for fever. Differential diagnosis: Etiologies such as viral syndrome, otitis, pharyngitis, pneumonia, influenza, meningitis, urinary tract infection, sepsis, bacteremia, as well as others were entertained. Physical examination: As above ER treatment provided: An order was placed for continuous cardiac monitoring. The monitor shows a rate of 60-1 50 with a sinus rhythm per my interpretation. Nebulizer, steroids, Zosyn, IV fluids, Tylenol, Motrin On reassessment the patient felt better. Diagnostics interpreted by me: ECG: Ordered for dyspnea EKG: Normal sinus, left anterior fascicular block, incomplete right bundle wrench block, rate of 122. EKG compared to prior EKG with no acute changes noted. Impression sinus tachycardia with left anterior fascicular block interpreted by myself I think arrhythmia is unlikely. EKG shows no interval abnormalities such as QT prolongation or WPW. There are no findings to suggest Brugada syndrome. Cardiac monitoring in the emergency department reveals no tachycardic or bradycardic dysrhythmia. Hypertrophic cardiomyopathy was considered but there are no clear historical elements pointing toward this. EKG is not suggestive. The QRS voltage is not extremely large The labs revealed leukocytosis, negative COVID, negative flu Blood cultures pending Negative troponin Imaging studies: CTA CHEST: Compared to 06/07/2016 No pulmonary emboli. No acute chest finding. Calcified mediastinal and hilar lymph nodes. Cholelithiasis. Radiologist: Aidan Samaniego MD HEART SCORE: Hx: high/mod/low suspicion: 0 ECG: ST depression/nonspecific changes/normal: 1 Age: Greater than 65/45-64/less than 45: 2 Risk factors: (Hypertension, hyperlipidemia, diabetes, coronary disease, tobacco use, cocaine use): 1 Troponin: Greater than 2 times normal limits/1-2 times normal limits/normal: 0 Total: 4 The pulmonary embolism rule out criteria (PERC rule) Age <50 years 1 Heart rate <100 bpm 1 Oxyhemoglobin saturation >=5% 1 No hemoptysis 0 No estrogen use 0 No prior DVT or PE 0 No unilateral leg swelling 0 No surgery/trauma requiring hospitalization within the prior four weeks 0 (0 low risk) Total: + Consultation: A consultation was placed with the hospitalist. The case was discussed and diagnostics were reviewed. The patient was evaluated in the ER for further treatment. This appears to be consistent with fever with shortness of breath concerns for developing pneumonia. Patient had a leukocytosis and concerns for pneumonia so was given antibiotics. CT was reviewed. Patient was not short of breath and sats are low so advanced imaging was ordered. No PE. COVID was negative. Flu was negative. Patient is agreeable treatment plan of admission. Medicine was consulted. By the evaluation outlined above emergent etiologies such as otitis, pharyngitis, meningitis, urinary tract infection, sepsis, bacteremia, as well as others were deemed relatively unlikely. The pt informed about the findings as listed above. All questions were answered and pleased with the treatment. The chart was completed utilizing [employer] Speech voice recognition software. Grammatical errors, random word insertions, pronoun errors, and incomplete sentences are an occassional consequence of this system due to software limitations, ambient noise, and hardware issues. Any formal questions or concerns about the content, text, or information contained within the body of this dictation should be directly addressed to the physician rehab assistant for clarification. Impression & Plan Fever, AB (asthmatic bronchitis), Acute dyspnea Discharge Plan Visit Data Chief Complaint: Hypertension Stated Complaint: HIGH BP, FEVER, NAUSEA, DIZZY ED Provider: Ludwin Peck ED Midlevel Provider: Berta Giron Discharge Problem: Fever, AB (asthmatic bronchitis), Acute dyspnea Patient Disposition: Admitted As Inpatient Condition: Good Forms Stand Alone Forms: [facility] Prescriptions Prescriptions: No Action losartan 100 mg tablet 100 mg PO QAM citalopram 20 mg tablet 20 mg PO DAILY meloxicam 15 mg tablet 15 mg PO DAILY Rx Instructions: TAKE THIS MED WITH FOOD amlodipine 2.5 mg tablet 2.5 mg PO DAILY multivitamin Tablet 1 tab PO DAILY vitamin E 200 unit Tablet 0 unit PO DAILY cholecalciferol (vitamin D3) 25 mcg (1,000 unit) Tablet 12.5 mcg PO DAILY acetaminophen [Tylenol Ex Str Rapid Release] 500 mg Tablet 1,000 mg PO AMHS PRN (Reason: Pain) Glucosamine Chondroitin 550-30-1 mg Capsule 2 cap PO QAM albuterol sulfate 90 mcg/actuation Hfa Aerosol Inhaler 2 puff INHALATION QID PRN (Reason: Shortness Of Breath Or Wheezing) Referrals Referrals: Syd Duarte PA-C [Primary Care Provider] - : Fever Qualifiers: Fever type: unspecified Qualified Code(s): R50.9 - Fever, unspecified
[2022-03-10] MEDS ORDERED: SODIUM CHLORIDE 0.9% 1000ML 1,000 ML IV SCH (04:03)
[2022-03-10] MEDS ORDERED: ALBUT/IPRATROP 3MG/0.5MG NEB 3 ML VIAL NEB PRN (04:03)
[2022-03-10] MEDS ORDERED: NITROGLYCERIN SL 0.4 MG/TAB TAB SL PRN (04:03)
[2022-03-10] MEDS ORDERED: POLYETHYLENE (MIRALAX) 17 GM PACK PO PRN (04:03)
[2022-03-10] MEDS: ENOXAPARIN INJ 40 MG/0.4 ML SYR SQ SCH ×2 (06:20→17:25)
[2022-03-10 06:45] LABS: Hematocrit (blood only) 41.3 % (40.1-51.0); Hemoglobin 14.3 g/dl (14.0-18.0); Mean Corpuscular Hemoglobin 30.8 pg (25.0-34.0); Mean Corpuscular Hgb Conc 34.6 g/dL (32.0-36.0); Mean Corpuscular Volume 88.8 fL (80.0-100.0); Mean Platelet Volume 9.4 fL (9.4-12.4); Platelet Count 162 K/uL (130-400); RDW Standard Deviation 38.6 fL (36.4-46.3); Red Blood Count 4.65 M/uL (4.63-6.08); White Blood Count 15.24 K/ul (4.8-10.8)
[2022-03-10] MEDS ORDERED: AZITHROMYCIN 250 MG TAB PO ONE (07:00)
[2022-03-10 07:11] LABS: Basophils # (auto) 0.02 K/uL (0-0.2); Basophils % (auto) 0.1 %; Immature Granulocytes # (auto) 0.09 K/uL (0.00-0.02); Immature Granulocytes % (auto) 0.6 %; Lymphocytes # (auto) 0.44 K/uL (1.2-3.4); Lymphocytes % (auto) 2.9 %; Monocytes % (auto) 1.3 %; Neutrophils # (auto) 14.49 K/uL (1.4-6.5); Neutrophils % (auto) 95.1 %
[2022-03-10 07:19] LABS: Calcium 8.7 mg/dl (8.5-10.1); Magnesium 1.9 mg/dl (1.7-2.4); Potassium 4.2 mmol/L (3.5-5.1)
--- NOTE | 2022-03-10 07:19 | History and Physical Report ---
DATE OF ADMISSION: 03/10/2022 CHIEF COMPLAINT: Ongoing fever and dizziness. HISTORY OF PRESENT ILLNESS: This is a 66-year-old male with past medical history significant for hypertension, asthma, and sleep apnea, who presents with not feeling well. The patient is having cough for several days. He is having a lot of cough initially with some phlegm, currently not bring any phlegm. He seems like he is emptying his lungs with the cough and last few days the cough seems to be getting better, but yesterday in the afternoon at 2:30 p.m., he suddenly became dizzy, having shaking chills, fever, and not feeling well, which prompted him to come to the ER. In the ER, he was spiking temperature and his white count was 19,000. There was a question of pneumonia. Urinalysis looked okay. SARS-CoV-2 PCR, influenza A and B PCR, and RSV PCR negative. CTA chest preliminary report unremarkable. Currently, resting comfortably and hemodynamically stable. Saturating okay on room air. Denies any headache currently. His left eye vision is not that great because of retinal tear following with ophthalmology.He has some runny nose. No sore throat. No earaches. He has chronic tinnitus in the left ear. Appetite is okay. Sometimes has difficulty swallowing. He has a history of esophageal dilatation in the past in [place]. Denies any chest pain. No nausea. No abdominal pain. Normal bowel and bladder movements. Denies any blood in stools or black stools. Normal bladder movements. He says he was having swelling of the ankles recently, but that got resolved. He says his ambulatory function is not that great because of his knee problems. He has sleep apnea and uses BiPAP at night. ALLERGIES: NO KNOWN DRUG ALLERGIES. PAST MEDICAL HISTORY: As mentioned above. PAST SURGICAL HISTORY: Left retinal tear surgery, shoulder surgery, hip surgery, appendectomy, tonsillectomy, and adenoidectomy. MEDICATIONS: The patient is on Tylenol Ex rapid release 1000 mg p.o. b.i.d. p.r.n., albuterol 2 puffs inhalation q.i.d. p.r.n., amlodipine 2.5 mg p.o. daily, vitamin D 12.5 mcg p.o. daily, citalopram 20 mg p.o. daily, glucosamine chondroitin 2 capsules p.o. a.m., losartan 100 mg p.o. a.m., meloxicam 15 mg p.o. daily, and multivitamin 1 tablet p.o. daily. FAMILY HISTORY: Significant for father had diabetes, bladder cancer, and of heart attack in his 80s. Mother in sleep. SOCIAL HISTORY: Used to smoke when he was small, quit at the age of 19, used to smoke 1 or 2 cigarettes at that time. Alcohol rarely. REVIEW OF SYSTEMS: As per HPI. Rest of the review of systems is negative. PHYSICAL EXAMINATION: GENERAL: The patient is obese, not in acute distress. VITAL SIGNS: Temperature 38.6, pulse 80, respiratory rate 18, blood pressure 132/66, and oxygen 98% on room air. HEENT: Pupils equal, round, and reactive to light. Oral mucosa moist. NECK: No JVD. No neck masses. CARDIOVASCULAR: S1 and S2 heard. Regular rate and rhythm. No murmur. No gallop. RESPIRATORY SYSTEM: Normal AP diameter. No accessory muscle use. No wheezing or crackles. ABDOMEN: Soft, bowel sounds present, nontender, and no distention. CENTRAL NERVOUS SYSTEM: Alert and oriented. Speech is clear. No facial droop. Obeys simple commands. Moves extremities. EXTREMITIES: No edema. No erythema seen. LABORATORY DATA: WBC 19, hemoglobin 15.4, hematocrit 44.2, and platelets 185. Sodium 136, potassium 4.2, chloride 105, bicarbonate 21, BUN 28, creatinine 1.2, serum glucose 108, lactate 1.9, and calcium 9.3. Total bilirubin 0.6, AST 29, ALT 40, and alkaline phosphatase 61. Troponin I high sensitivity 19.5. Procalcitonin 0.2. Urinalysis negative. SARS-CoV-2 PCR negative. Influenza A and B PCR negative. RSV PCR negative. IMAGING DATA: CTA chest, preliminary report unremarkable. Chest x-ray, no obvious acute findings. EKG: Sinus tachycardia at a rate of 122, incomplete right bundle-branch block, and left anterior fascicular block. ASSESSMENT AND PLAN: This is a 66-year-old male, who presents with ongoing cough and today he felt chills, fever, and dizziness. 1. Illness could be viral illness. Has some dizziness, fever, ongoing cough for the last few days, chills, yesterday had temp spike and also in the ER, his white count is 19, questionable pneumonia, but CTA chest unremarkable. Follow the final report of the CAT scan. His urinalysis is negative. SARS-CoV-2 PCR, influenza A and B PCR, and RSV PCR negative.ER empirically gave Zosyn and we will continue with IV Rocephin and azithromycin. Follow the cultures. Follow the final report of imaging studies. Gentle fluids for now. Monitor in the hospital. 2. History of hypertension. Continue his home losartan and amlodipine and monitor the blood pressure. 3. History of depression. Continue citalopram. 4. History of asthma. The patient received f steroids and nebs in the ER, currently not wheezing, saturating okay on room air. We will continue with nebs p.r.n. and home inhalers for now. Antibiotics as above. 5. Obstructive sleep apnea, on BiPAP at bedtime. 6. Obesity. Needs counseling. 7. Deep venous thrombosis prophylaxis. We will place him on Lovenox. DISPOSITION: Closely monitor in the med tele. PT/OT prior to discharge. Social service to help with discharge planning. Job ID: [id number] [facility] HAYES HOSPITALSuzanne
[2022-03-10 07:25] LABS: BUN Creatinine Ratio 23.5 (10-20); Creatinine Clr Calc Pharmacy 77.5 ml/min; Est GFR (African American) 73.9 ml/min; Est GFR (Non-African American) 63.7 ml/min
--- NOTE | 2022-03-10 07:26 | XRay Report ---
TWO VIEW CHEST CLINICAL HISTORY: Cough and fever. FINDINGS: PA and lateral chest radiographs are compared to chest x-ray and chest CT dated 06/07/2016. The heart is enlarged. The pulmonary vascular structures noncongested. Chronic interstitial thickenin g is similar to previous. No airspace consolidation or pleural effusion is identified. Scarring/atele ctasis is seen at the lung bases. There are scattered calcified granulomas. No pneumothorax is seen. The skeletal structures are osteopenic. The bony thorax appears intact. IMPRESSION: No acute cardiopulmonary abnormality is identified. ACT 112: Negative or not required by law. Electronically signed by: Ludwin Che M.D. 03/10/2022 7:25 AM
[2022-03-10] MEDS: ACETAMINOPHEN 325 MG TAB PO PRN (08:18)
--- NOTE | 2022-03-10 08:41 | CT Scan Report ---
CT angio chest PE protocol CLINICAL HISTORY: PE TECHNIQUE: Multidetector row helical CT of the chest was performed with angiographic protocol. Fernandez l and sagittal reformations were obtained. Coronal and sagittal MIPS were obtained from the axial christina a set and were submitted for review. Automated dose lowering techniques and/or adjustment according to patient size were utilized for this exam. CT DOSE: 768.54 mGy.cm Comparison: Comparison is made to CTA chest 06/07/2016 FINDINGS: Lungs and pleura: Fibrotic changes are seen most prominently in the right midlung. Calcified aorta ar e seen. Heart and pericardium: Heart size is normal. No pericardial effusion. Vessels: No evidence of pulmonary embolism. Mediastinum and pamela: Scattered partially calcified lymph nodes are seen. Chest wall and lower neck: Unremarkable. Abdomen: Cholelithiasis is seen without evidence of cholecystitis. Bones: Degenerative changes of the thoracic spine. Old healed rib fractures are seen. IMPRESSION: No pulmonary embolus is seen. ACT 112: Negative or not required by law. Electronically signed by: Taz Lawson M.D. 03/10/2022 8:40 AM
[2022-03-10] MEDS: cefTRIAXone SODIUM 2,000 MG in DEXTROSE 5% 50 ML IV SCH (09:38)
[2022-03-10] MEDS ORDERED: ALBUTEROL HFA 8 GM INHALER INH PRN (13:53)
[2022-03-10] MEDS: LOSARTAN POTASSIUM 50 MG TAB PO SCH (14:53)
[2022-03-10] MEDS: amLODIPine BESYLATE 5 MG TAB PO SCH (14:53)
--- NOTE | 2022-03-10 15:32 | Electrocardiogram Report ---
Test Reason : Blood Pressure : / mmHG Vent. Rate : 122 BPM Atrial Rate : 122 BPM P-R Int : 152 ms QRS Dur : 094 ms QT Int : 310 ms P-R-T Axes : 037 -51 046 degrees QTc Int : 441 ms Sinus tachycardia Incomplete right bundle branch block Left anterior fascicular block Abnormal ECG When compared with ECG of 07-JUN-2016 18:24, Vent. rate has increased BY 49 BPM Confirmed by Gomez Snell ([id number]) on 03/10/2022 3:31:59 PM Referred By: REFERRED SELF Confirmed By:Gomez Snell
--- NOTE | 2022-03-10 17:14 | Communication Note ---
Date of Service: March 10, 2022 66-year-old obese male with significant past medical history of hypertension, asthma, depression, TANISHA on BiPAP was admitted with febrile illness with dizz iness and very high blood pressure with increasing white count of 19,000. Has been feeling much better when I saw him in the emergency room and the blood pressure has been improving. Started on ceftriaxone and azithromycin and has been feeling much better already.A full progress note will be done tomorrow. DR Jj Gatica
[2022-03-10] MEDS: ACETAMINOPHEN 500 MG TAB PO PRN (21:27)
[2022-03-11] MEDS: ENOXAPARIN INJ 40 MG/0.4 ML SYR SQ SCH ×2 (05:52→17:03)
[2022-03-11] MEDS: guaiFENesin/CODEINE 100MG/10MG 5ML UDC PO PRN (07:41)
[2022-03-11 07:48] LABS: Basophils # (auto) 0.01 K/uL (0-0.2); Basophils % (auto) 0.1 %; Hematocrit (blood only) 41.8 % (40.1-51.0); Hemoglobin 14.1 g/dl (14.0-18.0); Immature Granulocytes # (auto) 0.07 K/uL (0.00-0.02); Immature Granulocytes % (auto) 0.5 %; Lymphocytes % (auto) 9.4 %; Mean Corpuscular Hemoglobin 30.1 pg (25.0-34.0); Mean Corpuscular Hgb Conc 33.7 g/dL (32.0-36.0); Mean Corpuscular Volume 89.1 fL (80.0-100.0); Monocytes # (auto) 1.28 K/uL (0.24-0.82); Monocytes % (auto) 9.2 %; Neutrophils # (auto) 11.19 K/uL (1.4-6.5); Neutrophils % (auto) 80.8 %; Platelet Count 192 K/uL (130-400); RDW Coefficient of Variation 12.4 % (11.5-14.5); RDW Standard Deviation 40.5 fL (36.4-46.3); Red Blood Count 4.69 M/uL (4.63-6.08); White Blood Count 13.85 K/ul (4.8-10.8)
[2022-03-11 08:16] LABS: Calcium 8.8 mg/dl (8.5-10.1); Potassium 4.6 mmol/L (3.5-5.1)
[2022-03-11] MEDS: amLODIPine BESYLATE 5 MG TAB PO SCH (08:17)
[2022-03-11] MEDS: LOSARTAN POTASSIUM 50 MG TAB PO SCH (08:18)
[2022-03-11] MEDS: CHOLECALCIFEROL 1,000 UNITS 25 MCG TAB PO SCH (08:18)
[2022-03-11] MEDS: MULTIVITAMIN TAB PO SCH (08:18)
[2022-03-11 08:22] LABS: BUN Creatinine Ratio 32.3 (10-20); Creatinine Clr Calc Pharmacy 93.3 ml/min; Est GFR (African American) 92.2 ml/min; Est GFR (Non-African American) 79.6 ml/min
[2022-03-11] MEDS: ACETAMINOPHEN 325 MG TAB PO PRN (08:24)
[2022-03-11] MEDS: AZITHROMYCIN 250 MG TAB PO SCH (09:11)
[2022-03-11] MEDS: CITALOPRAM 20 MG TAB PO SCH (09:11)
[2022-03-11] MEDS: CHLORASEPTIC 1.4% SOLN 180 ML BTL MT PRN ×2 (09:11→19:51)
[2022-03-11] MEDS: cefTRIAXone SODIUM 2,000 MG in DEXTROSE 5% 50 ML IV SCH (09:12)
--- NOTE | 2022-03-11 16:43 | Hospitalist Progress Note ---
Date of Service March 11, 2022 Assessment & Plan (1) Fever: Plan: 1. Upper respiratory tract infection, likely viral etiology Per admitting service notes: has some dizziness, fever, ongoing cough for the last few days, chills, yesterday had temp spike and also in the ER, his white count is 19, questionable pneumonia, but CTA chest unremarkable. Follow the final report of the CAT scan. His urinalysis is negative. SARS-CoV-2 PCR, influenza A and B PCR, and RSV PCR negative.ER empirically gave Zosyn and we will continue with IV Rocephin and azithromycin. Follow the cultures. Follow the final report of imaging studies. Gentle fluids for now. Monitor in the hospital. 03/11 Afebrile, clinically improving Blood cultures: Negative so far Continue ceftriaxone plus azithromycin Possible discharge tomorrow if patient continues to improve 2. History of hypertension. Blood pressure stable Continue amlodipine, losartan 3. History of depression. Continue citalopram. 4. History of asthma. Not in exacerbation 5. Obstructive sleep apnea, on BiPAP at bedtime. 6. Obesity. Needs counseling. 7. Deep venous thrombosis prophylaxis. Lovenox. Disposition Likely discharged home tomorrow Admission and Anticipated Discharge Date Admission Date: March 10, 2022 Subjective Follow-up for upper respiratory infection, etc. Seen resting in bed, comfortable, not in distress States he feels improved today compared to yesterday Still feels very tired Has occasional cough No chest pain, palpitations, dizziness, fevers or chills Appetite is okay No other symptoms Review of Systems Review of Systems: all noted and negative except for above Physical Exam Physical Exam: General- oriented x 3, not in distress, speaks in sentences with no effort or accessory muscle use Eyes- anicteric Neck- no JVD Lungs- clear breath sounds bilaterally, no rales/wheezes Heart- normal rate, regular rhythm; no murmurs Abdomen- normal bowel sounds, nondistended, soft, nontender Extremities- no pretibial edema, no calf tenderness Neuro- alert, oriented x 3; no gross focal neurologic deficits Skin- warm & dry Results & Data Results & Data ([facility]) Vital Signs (Past 12 Hours) Vital Signs Temp Pulse Pulse Resp BP BP Pulse Ox 03/11/22 14:17 79 03/11/22 14:00 03/11/22 15:16 36.8 C 77 18 137/86 94 03/11/22 12:14 36.5 C 73 18 148/84 H 97 03/11/22 07:35 03/11/22 07:00 66 03/11/22 08:02 36.5 C 76 17 145/84 H 94 Pulse Ox O2 Del Method O2 Del Method O2 Flow Rate 03/11/22 14:17 03/11/22 14:00 95 Room Air 0 03/11/22 15:16 Room Air 03/11/22 12:14 Room Air 03/11/22 07:35 Room Air 03/11/22 07:00 03/11/22 08:02 Room Air all noted and reviewed including below (1) Fever Fever type: unspecified Qualified Code(s): R50.9 - Fever, unspecified
[2022-03-11] MEDS: ACETAMINOPHEN 500 MG TAB PO PRN (20:39)
[2022-03-12] MEDS: ENOXAPARIN INJ 40 MG/0.4 ML SYR SQ SCH (05:03)
--- NOTE | 2022-03-12 06:46 | Ultrasound Report ---
BILATERAL LOWER EXTREMITY VENOUS DOPPLER HISTORY: Acute pain and swelling of the right lower extremity edema and erythema. dvt? COMPARISON STUDY: None. FINDINGS: There is normal compressibility, flow, and augmentation within the bilateral lower extremit y deep venous systems. IMPRESSION: No DVT within the right or left lower extremity. ACT 112: Negative or not required by law. Electronically signed by: Hiram Del Rosario M.D. 03/12/2022 6:45 AM
[2022-03-12] MEDS: guaiFENesin/CODEINE 100MG/10MG 5ML UDC PO PRN (07:39)
[2022-03-12] MEDS: ACETAMINOPHEN 325 MG TAB PO PRN (07:39)
[2022-03-12] MEDS: amLODIPine BESYLATE 5 MG TAB PO SCH (09:03)
[2022-03-12] MEDS: LOSARTAN POTASSIUM 50 MG TAB PO SCH (09:03)
[2022-03-12] MEDS: MULTIVITAMIN TAB PO SCH (09:03)
[2022-03-12] MEDS: CITALOPRAM 20 MG TAB PO SCH (09:03)
[2022-03-12] MEDS: AZITHROMYCIN 250 MG TAB PO SCH (09:03)
[2022-03-12] MEDS: cefTRIAXone SODIUM 2,000 MG in DEXTROSE 5% 50 ML IV SCH (09:04)
[2022-03-12] MEDS: CHOLECALCIFEROL 1,000 UNITS 25 MCG TAB PO SCH (09:04)
[2022-03-12] MEDS: CHLORASEPTIC 1.4% SOLN 180 ML BTL MT PRN (09:04)
--- NOTE | 2022-03-12 09:30 | Hospitalist Progress Note ---
Date of Service March 12, 2022 Assessment & Plan (1) Fever: Plan: 1. Upper respiratory tract infection Per admitting service notes: (+) dizziness, fever, ongoing cough for the last few days, chills, yesterday had temp spike and also in the ER, his white count is 19, questionable pneumonia, but CTA chest unremarkable. Follow the final report of the CAT scan. His urinalysis is negative. SARS-CoV-2 PCR, influenza A and B PCR, and RSV PCR negative.ER empirically gave Zosyn and we will continue with IV Rocephin and azithromycin. Follow the cultures. Follow the final report of imaging studies. Gentle fluids for now. Monitor in the hospital. 03/12 Afebrile, clinically improved Blood cultures: Negative x 48 hours given ceftriaxone plus azithromycin x 3 days discharge on: Cefdinir 300mg BID x 4 more days Azithromycin x 2 more days 2. History of hypertension BP stable Continue amlodipine, losartan 3. History of depression Continue citalopram. 4. History of asthma Not in exacerbation 5. Obstructive sleep apnea, on BiPAP at bedtime. 6. Obesity. Needs counseling. 7. Deep venous thrombosis prophylaxis. Lovenox. Disposition Likely discharged home tomorrow Admission and Anticipated Discharge Date Admission Date: March 10, 2022 Subjective ff up for possible sepsis, etc seen sitting up in bed, comfortable in good spirits states he feels better overall occasional cough, no shortness of breath/dyspnea/chest pain no fever/chills, abdominal pain, nausea appetite is good tired, not sleeping well in the hospital no other symptoms states he is ready and would like to be discharged today Review of Systems Review of Systems: all noted and negative except for above Physical Exam Physical Exam: General- oriented x 3, not in distress, speaks in sentences with no effort or accessory muscle use Eyes- anicteric Neck- no JVD Lungs- clear BS BL, no rales/wheezes Heart- normal rate, regular rhythm; no murmurs Abdomen- normal bowel sounds, nondistended, soft, nontender Extremities- no pretibial edema, no calf tenderness Neuro- alert, oriented x 3; no gross focal neurologic deficits Skin- warm & dry Results & Data Results & Data ([facility]) Vital Signs (Past 12 Hours) Vital Signs Temp Pulse Pulse Pulse Resp BP Pulse Ox 03/12/22 07:55 36.6 C 84 18 150/93 H 93 03/12/22 07:40 03/12/22 06:02 74 03/12/22 02:16 36.7 C 76 20 136/82 94 03/11/22 22:00 81 03/11/22 22:54 36.8 C 77 20 118/72 94 O2 Del Method 03/12/22 07:55 Room Air 03/12/22 07:40 Room Air 03/12/22 06:02 03/12/22 02:16 Room Air 03/11/22 22:00 03/11/22 22:54 Room Air all noted and reviewed including below (1) Fever Fever type: unspecified Qualified Code(s): R50.9 - Fever, unspecified
--- NOTE | 2022-03-12 09:40 | Discharge Summary ---
Discharge Summary Date of Service March 12, 2022 Notes For Next Care Provider Medication Changes From Visit Cefdinir 300 mg twice a day x4 days Doxycycline 100 mg twice a day x4 days Admission HPI Per Admitting Provider HISTORY OF PRESENT ILLNESS: This is a 66-year-old male with past medical history significant for hypertension, asthma, and sleep apnea, who presents with not feeling well. The patient is having cough for several days. He is having a lot of cough initially with some phlegm, currently not bring any phlegm. He seems like he is emptying his lungs with the cough and last few days the cough seems to be getting better, but yesterday in the afternoon at 2:30 p.m., he suddenly became dizzy, having shaking chills, fever, and not feeling well, which prompted him to come to the ER. In the ER, he was spiking temperature and his white count was 19,000. There was a question of pneumonia. Urinalysis looked okay. SARS-CoV-2 PCR, influenza A and B PCR, and RSV PCR negative. CTA chest preliminary report unremarkable. Currently, resting comfortably and hemodynamically stable. Saturating okay on room air. Denies any headache currently. His left eye vision is not that great because of retinal tear following with ophthalmology.He has some runny nose. No sore throat. No earaches. He has chronic tinnitus in the left ear. Appetite is okay. Sometimes has difficulty swallowing. He has a history of esophageal dilatation in the past in [place]. Denies any chest pain. No nausea. No abdominal pain. Normal bowel and bladder movements. Denies any blood in stools or black stools. Normal bladder movements. He says he was having swelling of the ankles recently, but that got resolved. He says his ambulatory function is not that great because of his knee problems. He has sleep apnea and uses BiPAP at night. Admission Exam Per Admitting Provider GENERAL: The patient is obese, not in acute distress. VITAL SIGNS: Temperature 38.6, pulse 80, respiratory rate 18, blood pressure 132/66, and oxygen 98% on room air. HEENT: Pupils equal, round, and reactive to light. Oral mucosa moist. NECK: No JVD. No neck masses. CARDIOVASCULAR: S1 and S2 heard. Regular rate and rhythm. No murmur. No gallop. RESPIRATORY SYSTEM: Normal AP diameter. No accessory muscle use. No wheezing or crackles. ABDOMEN: Soft, bowel sounds present, nontender, and no distention. CENTRAL NERVOUS SYSTEM: Alert and oriented. Speech is clear. No facial droop. Obeys simple commands. Moves extremities. EXTREMITIES: No edema. No erythema seen. Principal Dx & Hospital Course #1 = Principal Diagnosis (1) Fever: 1. Upper respiratory tract infection Per admitting service notes: (+) dizziness, fever, ongoing cough for the last few days, chills, yesterday had temp spike and also in the ER, his white count is 19, questionable pneumonia, but CTA chest unremarkable.His urinalysis is negative. SARS-CoV-2 PCR, influenza A and B PCR, and RSV PCR negative. CT chest: Lungs and pleura: Fibrotic changes are seen most prominently in the right midlung. Calcified aorta are seen. Heart and pericardium: Heart size is normal. No pericardial effusion. Vessels: No evidence of pulmonary embolism. Mediastinum and pamela: Scattered partially calcified lymph nodes are seen. Chest wall and lower neck: Unremarkable. Abdomen: Cholelithiasis is seen without evidence of cholecystitis. Bones: Degenerative changes of the thoracic spine. Old healed rib fractures are seen. IMPRESSION: No pulmonary embolus is seen. 03/12 Afebrile, clinically improved Blood cultures: Negative x 48 hours given Ceftriaxone plus Azithromycin x 3 days discharge on: Cefdinir 300mg BID x 4 more days Azithromycin x 2 more days 2. History of hypertension BP stable Continue amlodipine, losartan 3. History of depression Continue citalopram. 4. History of asthma Not in exacerbation 5. Obstructive sleep apnea, on BiPAP at bedtime. 6. Obesity. counseling. 7. Deep venous thrombosis prophylaxis. Lovenox. Disposition Discharge to home today Follow-up with primary care physician in 1 week Discharge Exam General- oriented x 3, not in distress, speaks in sentences with no effort or accessory muscle use Eyes- anicteric Neck- no JVD Lungs- clear BS BL, no rales/wheezes Heart- normal rate, regular rhythm; no murmurs Abdomen- normal bowel sounds, nondistended, soft, nontender Extremities- no pretibial edema, no calf tenderness Neuro- alert, oriented x 3; no gross focal neurologic deficits Skin- warm & dry Updated Medication List Medication Instructions Recorded Confirmed Type acetaminophen 500 mg tablet 1,000 mg PO AMHS PRN Pain 03/09/22 03/09/22 History albuterol sulfate 90 mcg/actuation 2 puff inhalation QID PRN 03/09/22 03/09/22 History aerosol inhaler Shortness Of Breath Or Wheezing amlodipine 2.5 mg tablet 2.5 mg PO DAILY 03/09/22 03/09/22 History cholecalciferol (vitamin D3) 25 12.5 mcg PO DAILY 03/09/22 03/09/22 History mcg (1,000 unit) tablet citalopram 20 mg tablet 20 mg PO DAILY 03/09/22 03/09/22 History glucosamine sulf dipot 2 cap PO QAM 03/09/22 03/09/22 History chlr,msm,chond 550 mg-C 30 mg-asif 1 mg capsule (Glucosamine Chondroitin) losartan 100 mg tablet 100 mg PO QAM 03/09/22 03/09/22 History meloxicam 15 mg tablet 15 mg PO DAILY 03/09/22 03/09/22 History multivitamin 1 tab PO DAILY 03/09/22 03/09/22 History vitamin E 200 unit tablet 0 unit PO DAILY 03/09/22 03/09/22 History cefdinir 300 mg capsule 300 mg PO BID 4 days #8 caps 03/12/22 Rx doxycycline hyclate 100 mg capsule 100 mg PO BID 4 days #8 caps 03/12/22 Rx Hospital Stay Data Consultations 03/10/22 01:16 ED Decision to Admit Stat Diagnostic Imagining Performed 03/09/22 23:30 CT angio chest PE protocol Stat CT DOSE: 768.54 mGy.cm Comparison: Comparison is made to CTA chest 06/07/2016 FINDINGS: Lungs and pleura: Fibrotic changes are seen most prominently in the right midlung. Calcified aorta are seen. Heart and pericardium: Heart size is normal. No pericardial effusion. Vessels: No evidence of pulmonary embolism. Mediastinum and pamela: Scattered partially calcified lymph nodes are seen. Chest wall and lower neck: Unremarkable. Abdomen: Cholelithiasis is seen without evidence of cholecystitis. Bones: Degenerative changes of the thoracic spine. Old healed rib fractures are seen. IMPRESSION: No pulmonary embolus is seen. ACT 112: Negative or not required by law. Electronically signed by: Taz Lawson M.D. 03/10/2022 8:40 AM 03/12/22 01:13 US venous doppler LE BI Urgent IMPRESSION: No DVT within the right or left lower extremity. Pending Results Patient Have Any Pending Studies at Discharge: No Discharge Instructions Given to Patient (Per Discharging Provider) PLEASE REFER TO YOUR NEW MEDICATION LIST AND FOLLOW INSTRUCTIONS CAREFULLY. YOUR NEW MEDICATIONS INCLUDE: Cefdinir, Doxycycline - antibiotics Drink plenty of water. Eat yogurt and take probiotics daily x2 weeks. PLEASE CALL YOUR PRIMARY CARE PHYSICIAN OR RETURN TO THE ER IF WITH WORSENING OF SYMPTOMS, INCLUDING Cough, shortness of breath, fevers or chills, etc. FOLLOW UP WITH PRIMARY CARE PHYSICIAN in 1 week. Total Time Total Time Spent Total Time Spent (In Minutes): >30 minutes
== END 2022-03-12 11:02 | disposition hospice, home (50) | DRG 866 ==
LOC: ED 18:38 → EDINP 03-10 01:49 → SUATTDRO 03-10 01:49 → EDINP 03-10 04:00 → 2W 03-10 21:20
DX: Z99.89 Dependence on other enabling machines and devices; F32.A Depression, unspecified; Z68.39 Body mass index [BMI] 39.0-39.9, adult; G47.33 Obstructive sleep apnea (adult) (pediatric); B34.9 Viral infection, unspecified; I10 Essential (primary) hypertension; J45.909 Unspecified asthma, uncomplicated; E66.9 Obesity, unspecified